=== PATIENT | female | born 1975 | race Hispanic/Latino ===

== ENCOUNTER 2021-01-25 15:16 | Inpatient (IN) | payer OTHER, SELFPAY ==
[~2021-01-25] VITALS: Ht 160 cm; Wt 78.5 kg
[2021-01-25 16:20] LABS: BASOPHILS % (AUTO) 1.1 % (0.0-5.0); EOSINOPHILS % (AUTO) 2.4 % (0.0-8.0); HEMATOCRIT 24.3 % (36-48); LYMPHOCYTES % (AUTO) 18.6 % (21.0-51.0); MEAN CORPUSCULAR HEMOGLOBIN 14.5 pg (27.0-33.0); MEAN CORPUSCULAR HGB CONC 24.3 g/dL (32.0-36.0); MEAN CORPUSCULAR VOLUME 59.7 fL (79-99); MONOCYTES % (AUTO) 6.9 % (3.0-13.0); NEUTROPHILS % (AUTO) 70.5 % (40.0-77.0); NUCLEATED RED BLOOD CELLS 0.4 % (0.0-0.19); PLATELET COUNT (AUTO) 214 K/uL (130-400); RED BLOOD CELL COUNT(AUTO) 4.07 MIL/uL (4.00-5.50); RED CELL DISTRIBUTION WIDTH 23.8 % (11.0-15.5); WHITE BLOOD COUNT (AUTO) 7.4 K/uL (4.8-10.8)
[2021-01-25 16:27] LABS: CREATININE 0.7 mg/dL (0.5-1.5); POTASSIUM 3.4 mmol/L (3.5-5.1)
[2021-01-25 16:34] VITALS: BP 137/67
[2021-01-25 16:45] LABS: BILIRUBIN,TOTAL 0.7 mg/dL (0.2-1.0); TOTAL PROTEIN, SERUM 7.7 g/dL (6.0-8.3)
[2021-01-25] MEDS ORDERED: COMPOUND IV MISC 1 EACH IVSOLN MISC PRN (18:00)
[2021-01-25] MEDS ORDERED: POTASSIUM CHLORIDE 10MEQ SR TAB PO SCH (18:00)
[2021-01-25] MEDS ORDERED: DIPHENHYDRAMINE HCL 25 MG CAPSULE PO PRN (18:00)
[2021-01-25] MEDS ORDERED: ONDANSETRON 4MG INJ IV PRN (18:00)
[2021-01-25 18:14] VITALS: BP 142/68
[2021-01-25 18:56] LABS: % IRON SATURATION 2.8 % (22-44)
[2021-01-25 19:30] VITALS: BP 135/68
[2021-01-25] MEDS: FAMOTIDINE 20MG TAB PO SCH (21:37)
[2021-01-25 21:53] VITALS: BP 141/62
[2021-01-25] MEDS: ACETAMINOPHEN 325 MG TAB PO PRN (22:02)
[2021-01-25] MEDS: IRON SUCROSE COMPLEX 100 MG in 0.9%NACL 50ML 50 ML IV SCH (23:00)
[2021-01-25 23:45] VITALS: BP 132/72
[2021-01-26] VITALS (10 sets, daily range): BP systolic 116–156; BP diastolic 65–90
[2021-01-26 04:59] LABS: BASOPHILS % (AUTO) 1.1 % (0.0-5.0); EOSINOPHILS % (AUTO) 2.7 % (0.0-8.0); HEMATOCRIT 23.6 % (36-48); LYMPHOCYTES % (AUTO) 22.2 % (21.0-51.0); MEAN CORPUSCULAR HEMOGLOBIN 16.1 pg (27.0-33.0); MEAN CORPUSCULAR HGB CONC 25.8 g/dL (32.0-36.0); MEAN CORPUSCULAR VOLUME 62.1 fL (79-99); MONOCYTES % (AUTO) 7.3 % (3.0-13.0); NEUTROPHILS % (AUTO) 66.2 % (40.0-77.0); NUCLEATED RED BLOOD CELLS 0.3 % (0.0-0.19); PLATELET COUNT (AUTO) 158 K/uL (130-400); RED CELL DISTRIBUTION WIDTH 26.2 % (11.0-15.5); WHITE BLOOD COUNT (AUTO) 6.6 K/uL (4.8-10.8)
[2021-01-26 05:01] LABS: ALBUMIN 3.4 g/dL (3.5-5.0); BILIRUBIN,TOTAL 0.7 mg/dL (0.2-1.0); CREATININE 0.7 mg/dL (0.5-1.5); POTASSIUM 3.8 mmol/L (3.5-5.1); TOTAL PROTEIN, SERUM 6.6 g/dL (6.0-8.3)
[2021-01-26] MEDS ORDERED: ACETAMINOPHEN 325 MG TAB PO SCH ×2 (05:30→07:30)
[2021-01-26] MEDS ORDERED: DIPHENHYDRAMINE HCL 25 MG CAPSULE PO SCH (05:30)
[2021-01-26] MEDS: ACETAMINOPHEN 325 MG TAB PO PRN (07:34)
[2021-01-26] MEDS: FAMOTIDINE 20MG TAB PO SCH ×2 (09:00→22:01)
[2021-01-26] MEDS ORDERED: MEDROXYPROGESTERONE ACET 5 MG TAB PO SCH (09:43)
[2021-01-26] MEDS: IRON SUCROSE COMPLEX 100 MG in 0.9%NACL 50ML 50 ML IV SCH (12:16)
[2021-01-26 12:30] LABS: HEMATOCRIT 28.6 % (36-48)
[2021-01-27 03:28] VITALS: BP 135/79
[2021-01-27 04:13] LABS: BASOPHILS % (AUTO) 0.9 % (0.0-5.0); HEMATOCRIT 28.9 % (36-48); LYMPHOCYTES % (AUTO) 19.8 % (21.0-51.0); MEAN CORPUSCULAR HEMOGLOBIN 17.4 pg (27.0-33.0); MEAN CORPUSCULAR VOLUME 64.7 fL (79-99); MONOCYTES % (AUTO) 6.1 % (3.0-13.0); NEUTROPHILS % (AUTO) 69.3 % (40.0-77.0); NUCLEATED RED BLOOD CELLS 0.8 % (0.0-0.19); PLATELET COUNT (AUTO) 148 K/uL (130-400); RED BLOOD CELL COUNT(AUTO) 4.47 MIL/uL (4.00-5.50); RED CELL DISTRIBUTION WIDTH 28.1 % (11.0-15.5); WHITE BLOOD COUNT (AUTO) 8.9 K/uL (4.8-10.8)
[2021-01-27 04:43] LABS: ALBUMIN 3.6 g/dL (3.5-5.0); BILIRUBIN,TOTAL 0.6 mg/dL (0.2-1.0); CREATININE 0.6 mg/dL (0.5-1.5); POTASSIUM 3.9 mmol/L (3.5-5.1); TOTAL PROTEIN, SERUM 6.9 g/dL (6.0-8.3)
[2021-01-27 07:20] VITALS: BP 132/71
[2021-01-27] MEDS: FAMOTIDINE 20MG TAB PO SCH (09:07)
[2021-01-27] MEDS ORDERED: MEDROXYPROGESTERONE ACET 5 MG TAB PO SCH (10:00)
[2021-01-27 11:08] VITALS: BP 141/90
[2021-01-27] MEDS: IRON SUCROSE COMPLEX 100 MG in 0.9%NACL 50ML 50 ML IV SCH (11:20)
== END 2021-01-27 16:00 | disposition home or self-care (01) | DRG 812 ==
LOC: EDH 15:16 → EDHIP 15:17 → WSH 01-26 00:35 → UNDODISIN 01-27 16:00
PROVIDERS: ADMIT Internal Medicine; ATTEND Internal Medicine
PROC: 30233N1 Transfusion of Nonautologous Red Blood Cells into Peripheral Vein, Percutaneous Approach (ICD-10-PCS; principal; 2021-01-25)
DX: D64.9 Anemia, unspecified (principal); N92.0 Excessive and frequent menstruation with regular cycle; L40.9 Psoriasis, unspecified; Z20.822 Contact with and (suspected) exposure to COVID-19; Z98.891 History of uterine scar from previous surgery; Z90.49 Acquired absence of other specified parts of digestive tract
CPT/HCPCS: 36415; 36430; 71045; 76856; 80053; 82607; 82746; 83540; 83550; 84484; 85014; 85018; 85025; 86850; 86900; 86901; 86923; 87635; 93005; G0378; J1756; P9016; Q0163

== ENCOUNTER 2023-08-01 16:08 | Emergency (ER) | payer BC, MEDICAID ==
[~2023-08-01] VITALS: Ht 160 cm; Wt 72.6 kg
[2023-08-01 16:12] VITALS: BP 140/75; PULSE 80; RESP 16
[2023-08-01 16:48] LABS: HEMATOCRIT 41.9 % (36-48); MEAN CORPUSCULAR HEMOGLOBIN 24.8 pg (27.0-33.0); MEAN CORPUSCULAR HGB CONC 33.2 g/dL (32.0-36.0); MEAN CORPUSCULAR VOLUME 74.7 fL (79-99); PLATELET COUNT (AUTO) 96 K/uL (130-400); RED BLOOD CELL COUNT(AUTO) 5.61 MIL/uL (4.00-5.50); WHITE BLOOD COUNT (AUTO) 8.9 K/uL (4.8-10.8)
[2023-08-01 16:59] LABS: CREATININE 0.8 mg/dL (0.5-1.5); POTASSIUM 3.8 mmol/L (3.5-5.1)
== END 2023-08-01 18:27 | disposition home or self-care (01) ==
LOC: EDH 16:08
DX: R00.2 Palpitations (principal); R73.9 Hyperglycemia, unspecified
CPT/HCPCS: 36415; 71045; 80048; 84484; 85027; 93005